=== PATIENT | female | born 1985 | race African-American/Black ===

== ENCOUNTER 2017-11-25 04:46 | Emergency (ER) | payer MEDICAID ==
[2015-03-26 09:03] VITALS: BMI 28.0
[~2017-11-25 04:46] MED LIST: ASPIRIN325 MG PO; FERROUS SULFAT325 MG PO; MOTRIN800 MG PO; PERCOCET 10/3251 TA1 PO; PRENATAL COMPLE1 TAB PO; VIBRAMYCIN 100100 MG PO
== END 2017-11-25 05:35 | disposition home or self-care (01) ==
LOC: D.ER 04:46
DX: H60.91 Unspecified otitis externa, right ear (principal); B00.2 Herpesviral gingivostomatitis and pharyngotonsillitis

== ENCOUNTER 2018-06-25 12:59 | Emergency (ER) | payer MEDICAID ==
[~2018-06-25] VITALS: Ht 175.3 cm; Wt 88.6 kg
[2018-06-25 13:10] VITALS: Ht 175.3 cm; Wt 88.6 kg
[2018-06-25] MEDS ORDERED: CLEOCIN HCL300 MG PO (15:26)
[2018-06-25 15:39] VITALS: BP 126/74
== END 2018-06-25 15:39 | disposition home or self-care (01) ==
LOC: D.ER 12:59
DX: K04.7 Periapical abscess without sinus (principal); S02.5XXA Fracture of tooth (traumatic), initial encounter for closed fracture; X58.XXXA Exposure to other specified factors, initial encounter; Y93.89 Activity, other specified; Y92.019 Unspecified place in single-family (private) house as the place of occurrence of the external cause

== ENCOUNTER 2019-10-25 09:23 | Emergency (ER) | payer OTHER ==
[~2019-10-25] VITALS: Ht 175.3 cm; Wt 90.9 kg
[~2019-10-25 09:23] MED LIST changes: +CLEOCIN HCL300 MG PO
[2019-10-25 09:39] VITALS: Ht 175.3 cm; Wt 90.9 kg
[2019-10-25 10:10] LABS: APPEARANCE CLEAR (CLEAR); BACTERIA MANY /hpf (NEGATIVE); BILIRUBIN NEGATIVE (NEGATIVE); COLOR YELLOW (YELLOW); EPITHELIAL CELLS 0-5 /hpf (0-5); GLUCOSE NEGATIVE (NEGATIVE); KETONE NEGATIVE (NEGATIVE); MUCUS >1+ /lpf (NONE SEEN); NITRITE NEGATIVE (NEGATIVE); PROTEIN NEGATIVE (NEGATIVE); RED CELLS - URINE 0-5 /hpf (0-5); UROBILINOGEN NORMAL (NORMAL)
[2019-10-25] MEDS ORDERED: SMZ-TMP DS TABL1 TAB PO (10:38)
[2019-10-25 11:32] VITALS: BP 117/57
== END 2019-10-25 11:30 | disposition home or self-care (01) ==
LOC: D.ER 09:23
PROVIDERS: Family Medicine
DX: R30.0 Dysuria (principal); N89.8 Other specified noninflammatory disorders of vagina

== ENCOUNTER 2019-12-10 08:18 | Emergency (ER) | payer OTHER ==
[~2019-12-10] VITALS: Ht 175.3 cm; Wt 90.5 kg
[~2019-12-10 08:18] MED LIST changes: +SMZ-TMP DS TABL1 TAB PO
[2019-12-10 08:22] VITALS: BP 106/70; Ht 175.3 cm; Wt 90.5 kg
== END 2019-12-10 10:02 | disposition home or self-care (01) ==
LOC: D.ER 08:18
DX: J06.9 Acute upper respiratory infection, unspecified (principal)